=== PATIENT | female | born 1960 | race Caucasian/White ===

== ENCOUNTER 2016-09-09 08:32 | Emergency (ER) | payer BC ==
[~2016-09-09] VITALS: Ht 170.2 cm; Wt 123.0 kg
[~2016-09-09 08:32] MED LIST: BUPR75TA PO; CANA300T PO; GLIM2TAB PO; HYDR-4107 PO; LOSA25TA PO; METO100T PO; NIFE30TA61 PO; OMEP20TA PO; RANI150C PO; ZETI10TA5 PO; ZOLO100T PO
[2016-09-09 08:42] VITALS: BP 155/79; PULSE 97; RESP 18; TEMP 97.8; O2SAT 97
--- NOTE | 2016-09-09 09:07 | PD ---
HPI Chief Complaint: Chest Pain Time Seen by Provider: 08:41 Travel History International Travel<30 days: No Contact w/Intl Traveler<30days: No Traveled to known affect area: No History of Present Illness HPI The patient is a 55-year-old female who presents to the emergency department for palpitations and shortness of breath. The patient states her symptoms started yesterday, she notes palpitations with difficulty breathing during her palpitations. She also complains of substernal burning pain with a foul taste in her mouth, which she contributes to assess her reflex. The patient does have a history of palpitations in the past with previous workup including outpatient Holter monitor. The patient is currently on metoprolol and Procardia. The patient cannot recall the name of the chief nurse anesthetist she saw several years ago for her palpitations. The patient denies any recent travel, surgeries, hospitalizations, or history of pulmonary embolism/DVT. The patient does have a history of hypertension and diabetes, denies any known history of CAD. Symptoms are moderate, there are no known alleviating or exacerbating factors. PFSH Past Medical History Anxiety: Yes Depression: Yes Heart Rhythm Problems: Yes (PALPITATIONS-IRREGULAR HEART BEAT) Cancer: Yes (RENAL CELL CARCINOMA) Chemotherapy: No Diabetes: Yes Patient Takes Glucophage: No Diminished Hearing: No GERD: Yes Genitourinary: Yes ("HORSE SHOE" KIDNEY) Hypertension: Yes Musculoskeletal: Yes (DEGENERATIVE DISC DISEASE, SCIATICA) Neurologic: No Reproductive: No Respiratory: Yes (11/30 ATELECTASIS FOLLOWING CHOLECYSTECTOMY) Immunizations Current: No Radiation Therapy: No PNEUMOCCOCAL Vaccine (Year): 2 ?: Not Menopausal: Yes Past Surgical History Abdominal Surgery: Yes (SPLENECTOMY R/T INJURY) Cholecystectomy: Yes (11/30) Genitourinary Surgery: Yes (LEFT KIDNEY PARTIAL REMOVAL R/T CANCER -2009) Pacemaker: No Tonsillectomy: Yes (+ adenoids) Other Surgery: Yes Social History Alcohol Use: Yes (SELDOM; RARE -BEER) Tobacco Use: No (QUIT 20+ YRS AGO- SMOKED CIGS) Substance Use: No Allergies-Medications (Allergen,Severity, Reaction): Coded Allergies: Cipro (Verified Allergy, Mild, Itching, 09/09/16) Reported Meds & Prescriptions Reported Meds & Active Scripts Active Reported Zoloft (Sertraline HCl) 100 Mg Tab 150 Mg PO DAILY Ranitidine (Ranitidine HCl) 150 Mg Cap 150 Mg PO DAILY Omeprazole 20 Mg Tab 20 Mg PO DAILY Nifedipine ER 24 HR (Nifedipine) 30 Mg Tab 30 Mg PO DAILY Hydrocodone-Acetaminophen 5-300 Mg Tab 1 Tab PO Q4H PRN Metoprolol Tartrate 100 Mg Tab 100 Mg PO DAILY Losartan (Losartan Potassium) 25 Mg Tab 25 Mg PO DAILY Glimepiride 2 Mg Tab 2 Mg PO BID Take with breakfast or first main meal Invokana (Canagliflozin) 300 Mg Tab 300 Mg PO DAILY Take before 1st meal of day. Bupropion HCl 75 Mg Tab 150 Mg PO DAILY Review of Systems Except as stated in HPI: all other systems reviewed are Neg General / Constitutional: No: Fever HENT: No: Lightheadedness Cardiovascular: Positive: Palpitations, No: Chest Pain or Discomfort, Diaphoresis Respiratory: Positive: Shortness of Breath Gastrointestinal: No: Nausea Musculoskeletal: No: Edema Neurologic: No: Dizziness Physical Exam Narrative GENERAL: Awake, alert, pleasant 35-year-old female who appears her stated age and is in no acute respiratory distress. The patient doesn't appear mildly anxious. SKIN: Warm and dry. HEAD: Atraumatic. Normocephalic. EYES: No injection or drainage. ENT: No nasal bleeding or discharge. Mucous membranes pink and moist. NECK: Trachea midline. No JVD. CARDIOVASCULAR: Regular rate and rhythm. No murmur appreciated. Heart rate in the 90s. RESPIRATORY: No accessory muscle use. Clear to auscultation. Breath sounds equal bilaterally. GASTROINTESTINAL: Abdomen soft, non-tender, nondistended. MUSCULOSKELETAL: No obvious deformities. No clubbing. No cyanosis. No edema. NEUROLOGICAL: Awake and alert. No obvious cranial nerve deficits. Motor grossly within normal limits. Normal speech. PSYCHIATRIC: Appropriate mood and affect; insight and judgment normal. Data Data Last Documented VS Vital Signs Date Time Temp Pulse Resp B/P Pulse Ox O2 Delivery O2 Flow Rate FiO2 09/09/16 11:01 82 18 131/77 95 Room Air 09/09/16 08:42 97.8 Orders Complete Blood Count With Diff (09/09/16 09:01) Comprehensive Metabolic Panel (09/09/16 09:01) B-Type Natriuretic Peptide (09/09/16 09:01) D-Dimer (09/09/16 09:01) Act Partial Throm Time (Ptt) (09/09/16 09:01) Prothrombin Time / Inr (Pt) (09/09/16 09:01) Magnesium (Mg) (09/09/16 09:01) Ckmb (Isoenzyme) Profile (09/09/16 09:01) Troponin I (09/09/16 09:01) Iv Access Insert/Monitor (09/09/16 09:01) Ecg Monitoring (09/09/16 09:01) Oximetry (09/09/16 09:01) Oxygen Administration (09/09/16 09:01) Chest, Single Ap (09/09/16 09:01) Sodium Chloride 0.9% Flush (Ns Flush) (09/09/16 09:15) Aspirin Chew (Aspirin Chew) (09/09/16 09:15) Ct Pulmonary Angiogram (09/09/16 ) Iohexol 350 Inj (Omnipaque 350 Inj) (09/09/16 10:52) Labs Laboratory Tests Test 09/09/16 09/09/16 09/09/16 09:12 09:38 09:57 Sodium Level 142 MEQ/L Potassium Level 3.9 MEQ/L Chloride Level 108 MEQ/L Carbon Dioxide Level 23.6 MEQ/L Anion Gap 10 MEQ/L Blood Urea Nitrogen 7 MG/DL Creatinine 0.66 MG/DL Estimat Glomerular Filtration 93 ML/MIN Rate Random Glucose 144 MG/DL Calcium Level 8.2 MG/DL Magnesium Level 2.3 MG/DL Total Bilirubin 0.5 MG/DL Aspartate Amino Transf 22 U/L (AST/SGOT) Alanine Aminotransferase 25 U/L (ALT/SGPT) Alkaline Phosphatase 140 U/L Total Creatine Kinase 45 U/L Troponin I LESS THAN 0.02 NG/ML B-Type Natriuretic Peptide 15 PG/ML Total Protein 7.6 GM/DL Albumin 3.2 GM/DL White Blood Count 13.6 TH/MM3 Red Blood Count 4.68 MIL/MM3 Hemoglobin 13.9 GM/DL Hematocrit 43.2 % Mean Corpuscular Volume 92.2 FL Mean Corpuscular Hemoglobin 29.8 PG Mean Corpuscular Hemoglobin 32.3 % Concent Red Cell Distribution Width 14.1 % Platelet Count 565 TH/MM3 Mean Platelet Volume 7.6 FL Neutrophils (%) (Auto) 70.6 % Lymphocytes (%) (Auto) 18.4 % Monocytes (%) (Auto) 4.6 % Eosinophils (%) (Auto) 4.4 % Basophils (%) (Auto) 2.0 % Neutrophils # (Auto) 9.6 TH/MM3 Lymphocytes # (Auto) 2.5 TH/MM3 Monocytes # (Auto) 0.6 TH/MM3 Eosinophils # (Auto) 0.6 TH/MM3 Basophils # (Auto) 0.3 TH/MM3 CBC Comment DIFF FINAL Differential Comment Prothrombin Time 10.1 SEC Prothromb Time International 0.9 RATIO Ratio Activated Partial 26.7 SEC Thromboplast Time D-Dimer Quantitative (PE/DVT) 0.65 MG/L FEU [facility] Medical Decision Making Medical Screen Exam Complete: Yes Emergency Medical Condition: Yes Medical Record Reviewed: Yes Interpretation(s) EKG reveals sinus tachycardia with a rate of 101. Incomplete right bundle branch block. Q wave noted in lead 3 and aVF. No significant changes when compared to EKG performed January 16, 2013. Last Impressions Chest X-Ray 09/09/16 0901 Signed Impressions: Service Date/Time: August 09:15 - CONCLUSION: 1. No acute cardiopulmonary findings identified. Nate Ayon MD CT pulmonary angiogram is negative for pulmonary embolism. Minimal scattered parenchymal scarring in the lungs. Laboratory Tests Test 09/09/16 09/09/16 09/09/16 09:12 09:38 09:57 Sodium Level 142 MEQ/L Potassium Level 3.9 MEQ/L Chloride Level 108 MEQ/L Carbon Dioxide Level 23.6 MEQ/L Anion Gap 10 MEQ/L Blood Urea Nitrogen 7 MG/DL Creatinine 0.66 MG/DL Estimat Glomerular Filtration 93 ML/MIN Rate Random Glucose 144 MG/DL Calcium Level 8.2 MG/DL Magnesium Level 2.3 MG/DL Total Bilirubin 0.5 MG/DL Aspartate Amino Transf 22 U/L (AST/SGOT) Alanine Aminotransferase 25 U/L (ALT/SGPT) Alkaline Phosphatase 140 U/L Total Creatine Kinase 45 U/L Troponin I LESS THAN 0.02 NG/ML B-Type Natriuretic Peptide 15 PG/ML Total Protein 7.6 GM/DL Albumin 3.2 GM/DL White Blood Count 13.6 TH/MM3 Red Blood Count 4.68 MIL/MM3 Hemoglobin 13.9 GM/DL Hematocrit 43.2 % Mean Corpuscular Volume 92.2 FL Mean Corpuscular Hemoglobin 29.8 PG Mean Corpuscular Hemoglobin 32.3 % Concent Red Cell Distribution Width 14.1 % Platelet Count 565 TH/MM3 Mean Platelet Volume 7.6 FL Neutrophils (%) (Auto) 70.6 % Lymphocytes (%) (Auto) 18.4 % Monocytes (%) (Auto) 4.6 % Eosinophils (%) (Auto) 4.4 % Basophils (%) (Auto) 2.0 % Neutrophils # (Auto) 9.6 TH/MM3 Lymphocytes # (Auto) 2.5 TH/MM3 Monocytes # (Auto) 0.6 TH/MM3 Eosinophils # (Auto) 0.6 TH/MM3 Basophils # (Auto) 0.3 TH/MM3 CBC Comment DIFF FINAL Differential Comment Prothrombin Time 10.1 SEC Prothromb Time International 0.9 RATIO Ratio Activated Partial 26.7 SEC Thromboplast Time D-Dimer Quantitative (PE/DVT) 0.65 MG/L FEU Differential Diagnosis Differential diagnosis includes palpitations, arrhythmia, PAC, PVC, pulmonary embolism, cardiomyopathy, acute coronary syndrome Narrative Course IV was established, labs are drawn and sent, and the patient was placed on cardiac telemetry monitoring and continuous pulse oximetry monitoring. EKG was ordered and interpreted. Chest x-ray was ordered. The patient was administered aspirin 162 mg orally. The patient did take an extra dose of her metoprolol 100 mg extended release, as she was advised in the past for her palpitations. She was slightly tachycardic with no other risk factors, therefore, d-dimer was sent to lab. Patient does have a right bundle-branch block, initially had tachycardia, unable to rule out secondary to PERC criteria. Therefore, d-dimer was evaluated, was elevated, therefore, CT pulmonary injury gram was ordered. CT pulmonary injury gram is negative, patient symptoms have resolved, she to be a to taking more metoprolol this morning. Patient is stable for outpatient follow-up. Diagnosis Primary Impression: Palpitations Additional Impression: Dyspnea Qualified Code: R06.00 - Dyspnea, unspecified type Patient Instructions: General Instructions Additional Instructions: Please provide the patient a copy of her x-ray results, CT results, and lab results at discharge. Follow-up with your primary physician. Return if symptoms worsen or progress. Continue your current home medications as previously directed. Disposition: 01 DISCHARGE HOME Condition: Stable Yonathan Watts MD Sep 09, 2016 09:07
[2016-09-09 09:12] VITALS: O2SAT 97
[2016-09-09] MEDS ORDERED: ASPIRIN 81 MG CHEW TAB CHEW ONE (09:15)
[2016-09-09] MEDS ORDERED: SODIUM CHLORIDE 0.9% FLUSH 5 ML FLUSH IVF PRN (09:15)
--- NOTE | 2016-09-09 09:36 | RADHPO ---
EXAM DATE/TIME: 09/09/2016 09:15 [facility] COMPARISON: FLUOROSCOPY FOR INTERVENTIONAL PAIN, SPINAL UP TO 1 HR, December 20, 2014, 0:00. INDICATIONS : Heart palpatations & short of breath. MEDICAL HISTORY : Hypertension. Gastroesophageal reflux disease. . Irregular heart beat.Diabetes. Renal cell carci noma. Degenerative disc disease. SURGICAL HISTORY : Tonsillectomy. Cholecystectomy. Splenectomy. ENCOUNTER: Initial ACUITY: 2 days PAIN SCORE: 5/10 LOCATION: chest FINDINGS: A single view of the chest demonstrates the lungs to be symmetrically aerated without evidence of mas s, infiltrate or effusion. The cardiomediastinal contours are unremarkable. Osseous structures are intact. CONCLUSION: 1. No acute cardiopulmonary findings identified. Nate Ayon MD on September 09, 2016 at 9:34 Board Certified Radiologist. This report was verified electronically.
[2016-09-09 09:42] LABS: AUTOMATED NEUTROPHIL # 9.6 TH/MM3 (1.8-7.7); BASOPHIL # 0.3 TH/MM3 (0-0.2); EOSINOPHIL # 0.6 TH/MM3 (0-0.4); EOSINOPHIL % 4.4 % (0.0-4.0); HEMATOCRIT 43.2 % (35.0-46.0); HEMO FLAGS DIFF FINAL; LYMPH % 18.4 % (9.0-44.0); LYMPHOCYTE # 2.5 TH/MM3 (1.0-4.8); MEAN CELL VOLUME 92.2 FL (80.0-100.0); MEAN CORPUSCULAR HEMOGLOBIN 29.8 PG (27.0-34.0); MEAN CORPUSCULAR HGB CONC 32.3 % (32.0-36.0); MONO % 4.6 % (0.0-8.0); NEUT % 70.6 % (16.0-70.0); PLATELET COUNT 565 TH/MM3 (150-450); RED BLOOD COUNT 4.68 MIL/MM3 (4.00-5.30); RED CELL DISTRIBUTION WIDTH 14.1 % (11.6-17.2); WHITE BLOOD COUNT 13.6 TH/MM3 (4.0-11.0)
[2016-09-09 09:54] LABS: CHLORIDE 108 MEQ/L (98-107); POTASSIUM 3.9 MEQ/L (3.5-5.1); SODIUM (NA) 142 MEQ/L (136-145)
[2016-09-09 09:55] LABS: ANION GAP 10 MEQ/L (5-15); BICARBONATE 23.6 MEQ/L (21.0-32.0); BLOOD UREA NITROGEN 7 MG/DL (7-18); MAGNESIUM 2.3 MG/DL (1.5-2.5)
[2016-09-09 09:58] LABS: ALT (GPT) 25 U/L (10-53)
[2016-09-09 09:59] LABS: AST (GOT) 22 U/L (15-37); GLOMERULAR FILTRATION RATE 93 ML/MIN (>89)
[2016-09-09 10:00] LABS: TOTAL BILIRUBIN ADULT 0.5 MG/DL (0.2-1.0)
[2016-09-09 10:01] LABS: ALKALINE PHOSPHATASE 140 U/L (45-117)
[2016-09-09 10:05] LABS: CREATINE KINASE 45 U/L (26-192)
[2016-09-09 10:15] LABS: APTT (PATIENT) 26.7 SEC (24.3-30.1); INTERNATIONAL NORMALIZED RATIO 0.9 RATIO; PROTHROMBIN TIME - PATIENT 10.1 SEC (9.8-11.6)
[2016-09-09] MEDS ORDERED: IOHEXOL 350 MG/ML 10 ML VIAL (for RAD DIAG) IV ONE (10:52)
[2016-09-09 11:01] VITALS: BP 131/77; PULSE 82; RESP 18; O2SAT 95
--- NOTE | 2016-09-09 11:04 | RADHPO ---
EXAM DATE/TIME: 09/09/2016 10:40 [facility] COMPARISON: CTA CHEST W 3D RECON, September 04, 2009, 21:24. INDICATIONS : Short of breath. IV CONTRAST: 80 cc Omnipaque 350 (iohexol) IV RADIATION DOSE: 21.66 CTDIvol (mGy) MEDICAL HISTORY : Renal cell carcinoma. Diabetes mellitus type 2. Gastroesophageal reflux disease.Hypertension. SURGICAL HISTORY : Splenectomy. Partial nephrectomy. ENCOUNTER: Initial ACUITY: 1 day PAIN SCALE: 2/10 LOCATION: Bilateral chest TECHNIQUE: Volumetric scanning of the chest was performed using a pulmonary embolism protocol MIP images were re constructed. Using automated exposure control and adjustment of the mA and/or kV according to patien t size, radiation dose was kept as low as reasonably achievable to obtain optimal diagnostic quality images. FINDINGS: Compare 2009. No filling defects identified in the pulmonary arteries to suggest pulmonary embolic di sease. There is minimal linear scarring or subsegmental atelectasis in the lungs. No pleural or peric ardial effusion. No hilar or mediastinal adenopathy. There is a mildly prominent 1.9 cm left axillary lymph node not significantly changed since 2009. CONCLUSION: 1. Negative for pulmonary embolism. Minimal scattered parenchymal scarring in the lungs. Lawson Rowley MD on September 09, 2016 at 10:57 Board Certified Radiologist. This report was verified electronically.
--- NOTE | 2016-09-10 13:31 | EKG ---
Date Performed: 09/09/2016 Time Performed: 08:38:02 PTAGE: 55 years EKG: Sinus tachycardia Left axis deviation Incomplete RBBB Inferior infarct - age undetermined R ight ventricular hypertrophy Septal ST-T changes may be due to hypertrophy and/or ischemia Q waves in V2 are new since prior tracing. Possible anteroseptal infarct or lead placement Clinical correlation recommended. Abnormal ECG PREVIOUS TRACING : 01/16/2013 09.14 DOCTOR: Joey Isaacs Interpretating Date/Time 09/10/2016 13:30:43
== END 2016-09-09 11:27 | disposition home or self-care (01) ==
LOC: PHED 08:32
DX: R00.2 Palpitations (principal); R06.00 Dyspnea, unspecified; E11.9 Type 2 diabetes mellitus without complications; K21.9 Gastro-esophageal reflux disease without esophagitis; I10 Essential (primary) hypertension; R00.0 Tachycardia, unspecified; I45.10 Unspecified right bundle-branch block; Z79.4 Long term (current) use of insulin
CPT/HCPCS: 71010; 71275; 80053; 82550; 83735; 83880; 84484; 85025; 85379; 85610; 85730; 93005; 99285; Q9967

== ENCOUNTER 2016-09-30 05:43 | Emergency (ER) | payer OTHER, BC ==
[~2016-09-30] VITALS: Ht 170.2 cm; Wt 120.0 kg
[~2016-09-30 05:43] MED LIST changes: -ZETI10TA5 PO
[2016-09-30 05:50] VITALS: BP 141/73; PULSE 70; RESP 18; TEMP 98.4; O2SAT 94
--- NOTE | 2016-09-30 06:12 | PD ---
HPI Chief Complaint: Fall Time Seen by Provider: 06:09 Travel History International Travel<30 days: No Contact w/Intl Traveler<30days: No Traveled to known affect area: No History of Present Illness HPI The patient is a 55-year-old female that tripped and fell at 1:00 yesterday. She initially complained of bilateral knee pain but the left knee is much more painful and she states she cannot put weight on it. She fell directly on the patella on both knees. The pain in the right knee is resolving. 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 PFSH Past Medical History Anxiety: Yes Depression: Yes Heart Rhythm Problems: Yes (PALPITATIONS-IRREGULAR HEART BEAT) Cancer: Yes (RENAL CELL CARCINOMA) Chemotherapy: No Diabetes: Yes Diminished Hearing: No GERD: Yes Genitourinary: Yes ("HORSE SHOE" KIDNEY) Hypertension: Yes Musculoskeletal: Yes (DEGENERATIVE DISC DISEASE, SCIATICA) Neurologic: No Reproductive: No Respiratory: Yes (11/30 ATELECTASIS FOLLOWING CHOLECYSTECTOMY) Immunizations Current: No Radiation Therapy: No PNEUMOCCOCAL Vaccine (Year): 2 Menopausal: Yes Past Surgical History Abdominal Surgery: Yes (SPLENECTOMY R/T INJURY) Cholecystectomy: Yes (11/30) Genitourinary Surgery: Yes (LEFT KIDNEY PARTIAL REMOVAL R/T CANCER -2009) Pacemaker: No Tonsillectomy: Yes (+ adenoids) Other Surgery: Yes Social History Alcohol Use: Yes (SELDOM; RARE -BEER) Tobacco Use: No (QUIT 20+ YRS AGO- SMOKED CIGS) Substance Use: No Allergies-Medications (Allergen,Severity, Reaction): Coded Allergies: Cipro (Verified Allergy, Mild, Itching, 09/30/16) Reported Meds & Prescriptions Reported Meds & Active Scripts Active Reported Zetia (Ezetimibe) 10 Mg Tab 10 Mg PO DAILY Metoprolol Succinate ER 24 HR (Metoprolol Succinate) 100 Mg Tab 100 Mg PO DAILY Hydrocodone-Acetaminophen 10-325 mg Tab 1 Tab PO Q6H PRN Zoloft (Sertraline HCl) 100 Mg Tab 50 Mg PO DAILY Ranitidine (Ranitidine HCl) 150 Mg Cap 150 Mg PO DAILY Omeprazole 20 Mg Tab 20 Mg PO DAILY Nifedipine ER 24 HR (Nifedipine) 30 Mg Tab 30 Mg PO DAILY Losartan (Losartan Potassium) 25 Mg Tab 25 Mg PO DAILY Glimepiride 2 Mg Tab 2 Mg PO BID Take with breakfast or first main meal Invokana (Canagliflozin) 300 Mg Tab 300 Mg PO DAILY Take before 1st meal of day. Bupropion HCl 75 Mg Tab 150 Mg PO DAILY Review of Systems Except as stated in HPI: all other systems reviewed are Neg Physical Exam Narrative GENERAL: Well-nourished, alert and oriented, obese patient in moderate apparent distress with her left knee pain. The vital signs are normal. SKIN: Warm and dry. HEAD: Normocephalic. EYES: No scleral icterus. No injection or drainage. NECK: Supple, trachea midline. No JVD or lymphadenopathy. CARDIOVASCULAR: Regular rate and rhythm without murmurs, gallops, or rubs. RESPIRATORY: Breath sounds equal bilaterally. No accessory muscle use. GASTROINTESTINAL: Abdomen soft, non-tender, nondistended. MUSCULOSKELETAL: No cyanosis, or edema. No deformities noted of the left knee but there is tenderness over the patella as well as posteriorly over the left knee. Collaterals, drawer, Pricila show intact ligaments that there is pain with all of this testing. Good capillary refill and pinprick is present distally on the left foot. BACK: Nontender without obvious deformity. No CVA tenderness. Data Data Last Documented VS Vital Signs Date Time Temp Pulse Resp B/P Pulse Ox O2 Delivery O2 Flow Rate FiO2 09/30/16 05:50 98.4 70 18 141/73 94 Orders Knee, Complete (4vws) (09/30/16 06:12) [facility] Medical Decision Making Medical Screen Exam Complete: Yes Emergency Medical Condition: Yes Medical Record Reviewed: Yes Interpretation(s) The patient has a suprapatellar effusion on the right knee, no fracture noted. Differential Diagnosis Fracture patella, fracture knee, knee effusion Narrative Course The patient has a contusion of the left knee with a suprapatellar effusion. Plan: The patient will be given Percocet 5, rest, elevation and ice packs. She is given off work until Tuesday. The patient cannot tolerate crutches, she will need to get a walker. Additional Instructions: As we discussed, your idea of a walker is moderate superior than crutches. Do not drink alcohol or drive on the Percocet 5. Elevate the knee above your heart as best you can. Med/Other Pt SpecificInfo: Prescription(s) given Scripts Oxycodone-Acetaminophen (Percocet)5-325 mg Tab1 Tab PO Q4H PRN (PAIN) #30 TAB Ref 0 Prov:Reynold Post MD 09/30/16 Disposition: 01 DISCHARGE HOME Condition: Stable Reynold Post MD Sep 30, 2016 06:12
[2016-09-30] MEDS ORDERED: HYDR-3583 PO (06:32)
[2016-09-30] MEDS ORDERED: METO100T9 PO (06:35)
[2016-09-30] MEDS ORDERED: ZETI10TA5 PO (06:37)
--- NOTE | 2016-09-30 06:51 | RADHPO ---
EXAM DATE/TIME: 09/30/2016 06:22 [facility] COMPARISON: No previous studies available for comparison. INDICATIONS : Left knee pain after fall from standing height 24 hours ago MEDICAL HISTORY : None. SURGICAL HISTORY : None. ENCOUNTER: Initial ACUITY: 1 day PAIN SCORE: 5/10 LOCATION: Left anterior knee FINDINGS: Four view examination of the left knee demonstrates no evidence of fracture or dislocation. Bony min eralization is normal. The articular surfaces are intact. Small suprapatellar effusion. CONCLUSION: Small suprapatellar effusion. No fracture. Juanito Jeffers MD on September 30, 2016 at 6:49 Board Certified Radiologist. This report was verified electronically.
[2016-09-30] MEDS ORDERED: PERC5TAB12 PO (07:17)
[2016-09-30] MEDS ORDERED: PHYTONADIONE INJ 1 MG/0.5 ML AMP SQ ONE (07:30)
[2016-09-30] MEDS ORDERED: oxyCODONE/ACETAMINOPHEN 7.5 MG/325 MG TAB PO ONE (07:30)
[2016-09-30] MEDS ORDERED: IBUP-232 PO (07:40)
[2016-09-30] MEDS ORDERED: IBUPROFEN 600 MG TAB PO ONE (07:45)
[2016-09-30 08:46] VITALS: RESP 16
--- NOTE | 2016-09-30 08:53 | PD ---
Data Data Last Documented VS Vital Signs Date Time Temp Pulse Resp B/P Pulse Ox O2 Delivery O2 Flow Rate FiO2 09/30/16 08:46 16 09/30/16 05:50 98.4 70 141/73 94 Orders Knee, Complete (4vws) (09/30/16 06:12) Oxycodone-Acetamin 7.5-325 Mg (Percocet (09/30/16 07:30) Ibuprofen (Motrin) (09/30/16 07:45) MDM Supervised Visit with MADONNA: No Narrative Course Patient seen and examined briefly by me. Patient seen at Dr. Post overnight. Patient had a slip and fall with bilateral knee pain. Patient had an x-ray of her left knee which was more painful and had a knee effusion without acute bony injury. She is being discharged with instructions for a walker. After discharge by Dr. Martin as found the patient had injured herself by slip and fall at work. I was asked to fill out workman's injury paperwork. I have done so. The patient is being escorted to her current wheelchair. She appears well in no apparent distress. 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 She is cleared to return to work. Diagnosis Primary Impression: Knee effusion, left Patient Instructions: General Instructions, Narcotic given in the ED, Swollen Knee Joint (ED), Knee Pain (ED) Departure Forms: Tests/Procedures Additional Instruction: As we discussed, your idea of a walker is moderate superior than crutches. Do not drink alcohol or drive on the Percocet 5. Elevate the knee above your heart as best you can. Scripts Ibuprofen 600 Mg [id number] Mg PO TID #40 TAB Ref 0 Prov:Reynold Post MD 09/30/16 Oxycodone-Acetaminophen (Percocet)5-325 mg Tab1 Tab PO Q4H PRN (PAIN) #30 TAB Ref 0 Prov:Reynold Post MD 09/30/16 Disposition: 01 DISCHARGE HOME Condition: Stable Bradley Tubbs MD Sep 30, 2016 08:53
== END 2016-09-30 08:56 | disposition home or self-care (01) ==
LOC: PHED 05:43
DX: M25.462 Effusion, left knee (principal); S80.02XA Contusion of left knee, initial encounter; M25.561 Pain in right knee; I10 Essential (primary) hypertension; E11.9 Type 2 diabetes mellitus without complications; W01.0XXA Fall on same level from slipping, tripping and stumbling without subsequent striking against object, initial encounter; Y99.0 Civilian activity done for income or pay; Z79.84 Long term (current) use of oral hypoglycemic drugs; Z86.59 Personal history of other mental and behavioral disorders; Z86.79 Personal history of other diseases of the circulatory system; Z85.528 Personal history of other malignant neoplasm of kidney; Z87.19 Personal history of other diseases of the digestive system; Z87.448 Personal history of other diseases of urinary system; Z87.39 Personal history of other diseases of the musculoskeletal system and connective tissue; Z87.891 Personal history of nicotine dependence
CPT/HCPCS: 73564; 99283

== ENCOUNTER → 2017-10-18 | Day surgery (SDC) | payer BC ==
[~2017-10-18] MED LIST changes: +BUPIVACAINE HCL PF 0.75% 30 ML VIAL ONE; +EZET10 PO; +HYDR-3583 PO; -HYDR-4107 PO; +IBUP-232 PO; -METO100T PO; +METO1TAB43 PO; -OMEP20TA PO; +OMEP20TA93 PO; +PERC5TAB12 PO; +PROPOFOL 200 MG/20 ML AMP IV ONE; +TRIAMCINOLONE ACETONIDE 40 MG/ML VIAL I-ARTICULR ONE
--- NOTE | 2017-10-18 10:24 | M6 ---
cc: Swapna Saldana MD DATE: 10/18/2017 DATE OF : 1960 PROCEDURE: Fluoroscopically-guided injection, bilateral lumbar facet joints (bilateral L3-L4, L4-L5 and L5-S1 facet joints). PROCEDURE NOTE: History and physical was completed and signed. Consent was signed. Procedure site was marked. Medications were listed and reconciled. Pain score was recorded. Allergies were noted. Time out was taken. Fluoroscopy time was recorded where applicable. Sedation was administered or directed by Dr. Saldana. The patient was given oxygen. The patient was monitored by a registered nurse. Total procedure time was greater than 15 minutes. IV was started. Blood pressure cuff, pulse oximeter and EKG were applied. The patient was placed in the prone position on a Sung table, sedated with small amounts of Propofol titrated to effect. Vital signs were monitored and remained stable throughout the procedure. The lumbar area was prepped with alcohol and 10% Betadine solution and draped with sterile drapes. Fluoroscopy was used and a Miguel dog view to clearly visualize the bilateral lumbar facet joints at L3-L4, L4-L5, and L5-S1. Separate sterile 5 inch, 22-gauge spinal needles were advanced into these joints under fluoroscopic guidance. There was negative aspiration for blood or any other type of fluid and at each location, the patient was given 1 mL of Marcaine 0.75%, which contained 10 mg of Kenalog. Following this, the patient was taken to the recovery room with stable vital signs and neurologically intact. Swapna Saldana MD [facility] , 10:00 AM , 10:24 AM
== END | disposition home or self-care (01) ==
LOC: PHSDC 07:48
PROVIDERS: ATTEND Pain Medicine Interventional Pain Medicine
DX: M54.5 Low back pain (principal)
CPT/HCPCS: 64493; 64494; 64495; 99152; J3301

== ENCOUNTER 2018-05-19 17:18 | Inpatient (IN) ==
[2018-05-19 18:52] LABS: Baso # (Auto) 0.2 th/mm3 (0.0-0.2); Eos # (Auto) 0.3 th/mm3 (0.0-0.4); Eos % (Auto) 1.8 % (0.0-4.0); Hematocrit 45.9 % (35.0-46.0); Hemoglobin 15.4 gm/dL (11.6-15.3); Lymph # (Auto) 4.2 th/mm3 (1.0-4.8); Lymph % (Auto) 22.7 % (9.0-44.0); Mean Corpuscular HGB Conc 33.5 % (32.0-36.0); Mean Corpuscular Hemoglobin 31.2 pg (27.0-34.0); Mean Platelet Volume 8.1 fL (7.0-11.0); Mono # (Auto) 1.3 th/mm3 (0.0-0.9); Mono % (Auto) 7.2 % (0.0-8.0); Neut # (Auto) 12.6 th/mm3 (1.8-7.7); Neut % (Auto) 67.3 % (16.0-70.0); Platelet Count 542 th/mm3 (150-450); Red Blood Count 4.93 mil/mm3 (4.00-5.30); Red Cell Distribution Width 14.3 % (11.6-17.2); White Blood Count 18.7 th/mm3 (4.0-11.0)
[2018-05-19 19:05] LABS: Activated Partial Thrombo Time 24.8 sec (24.3-30.1)
[2018-05-19 19:24] LABS: Alanine Aminotransferase 30 U/L (10-53); Albumin 3.3 g/dL (3.4-5.0); Alkaline Phosphatase 148 U/L (45-117); Anion Gap 11 meq/L (5-15); Aspartate Aminotransferase 34 U/L (15-37); Blood Urea Nitrogen 12 mg/dL (7-18); Calcium 8.8 mg/dL (8.5-10.1); Carbon Dioxide 23.4 meq/L (21.0-32.0); Chloride 106 meq/L (98-107); Glomerular Filtration Rate 58 mL/min (>89); Glucose,Random 120 mg/dL (74-106); Sodium 140 meq/L (136-145); Total Protein 8.2 g/dL (6.4-8.2)
[2018-05-19 19:25] LABS: Potassium 3.7 meq/L (3.5-5.1)
--- NOTE | 2018-05-19 19:37 | ED ---
HPI General Chief complaint: Respiratory Symptoms Stated complaint: CT scan showed pulmonary embolisms Time Seen by Provider: 05/19/18 17:52 History of Present Illness HPI narrative: 57-year-old female with a history of renal cell carcinoma, presents here at the request of her oncologist for admission and evaluation for bilateral pulmonary embolus. Patient states that she gets routine CT scans to follow-up on her renal cell carcinoma. She states she is been cancer free since her surgery. Patient reports she followed up with Dr. Rolon who ordered an outpatient CT scan of her chest and abdomen pelvis. She states that he called her and told her to come to the hospital because she had bilateral pulmonary emboli. Patient reports that she is been short of breath and thought it was related to a recent URI. Patient also reports that she has no previous history of blood clots. She denies any long car rides or plane rides. She denies being on estrogen. She denies any tobacco abuse. Denies any trauma to her previous legs or leg pain or calf swelling. Related Data Home Medications Medication Instructions Recorded Confirmed bupropion HCl 150 mg PO QAM 02/28/18 05/19/18 canagliflozin [Invokana] 300 mg PO QAM 02/28/18 05/19/18 ezetimibe 10 mg PO DAILY 02/28/18 05/19/18 glimepiride 2 mg PO BID 02/28/18 05/19/18 losartan 25 mg PO DAILY 02/28/18 05/19/18 metoprolol succinate 100 mg PO DAILY 02/28/18 05/19/18 nifedipine 30 mg PO DAILY 02/28/18 05/19/18 omeprazole 20 mg PO DAILY 02/28/18 05/19/18 sertraline 50 mg PO DAILY 02/28/18 05/19/18 calcipotriene-betamethasone 1 applic TOPICAL DAILY 05/19/18 05/19/18 Allergies Allergy/AdvReac Type Severity Reaction Status Date / Time ciprofloxacin Allergy Mild Itching Verified 05/19/18 17:55 Review of Systems ROS: all other systems reviewed are negative Constitutional Reports system reviewed and no additional complaints, except as docu Eyes Reports system reviewed and no additional complaints, except as docu ENT Reports system reviewed and no additional complaints, except as docu Cardiovascular Denies chest pain and Reports dyspnea Respiratory Denies chest congestion, Denies cough and Reports dyspnea Gastrointestinal Denies abdominal pain, Denies nausea and Denies vomiting Genitourinary Reports system reviewed and no additional complaints, except as docu Musculoskeletal Denies system reviewed and no additional complaints, except as [facility] Neurologic Reports system reviewed and no additional complaints, except as [facility] Medical History Medical History Diabetes mellitus (Acute) HTN (hypertension) (Acute) History of kidney cancer (Acute) Obesity (Acute) Bulging of cervical intervertebral disc (Acute) Horseshoe kidney (Acute) Nerve pain (Acute) Surgical History Surgical History History of cholecystectomy (Acute) History of splenectomy (Acute) Social History Social History Substance History: Past History Smoking Status: Former smoker How Often Do You Have a Drink Containing Alcohol: Monthly or less Recent Travel in [facility] within the Last 8 Weeks: No Recent Out of Country Travel within the Last 8 Weeks: No Immunization History Tetanus Immunization: >5 Years Exam Narrative Exam Narrative: GENERAL: Well-developed well-nourished female in no acute respiratory distress. SKIN: Focused skin assessment warm/dry. HEAD: Atraumatic. Normocephalic. EYES: No scleral icterus. No injection or drainage. ENT: No nasal bleeding or discharge. Mucous membranes pink and moist. NECK: Trachea midline. No JVD. Supple. CARDIOVASCULAR: Sinus tach with a rate of 104. No murmur appreciated. RESPIRATORY: No accessory muscle use. Clear to auscultation. Breath sounds equal bilaterally. GASTROINTESTINAL: Abdomen soft, non-tender, nondistended. Hepatic and splenic margins not palpable. MUSCULOSKELETAL: No obvious deformities. No clubbing. No cyanosis. No edema. NEUROLOGICAL: Awake and alert. No obvious cranial nerve deficits. Motor grossly within normal limits. Normal speech. Course Initial Documented Vital Signs Temperature 99.0 F 05/19/18 17:35 Pulse Rate 102 H 05/19/18 17:35 Respiratory Rate 18 05/19/18 17:35 Blood Pressure 165/89 H 05/19/18 17:35 Pulse Oximetry 93 L 05/19/18 17:35 Last Documented Vital Signs Temperature 99.0 F 05/19/18 17:35 Pulse Rate 97 H 05/19/18 18:00 Respiratory Rate 17 05/19/18 19:25 Blood Pressure 145/59 H 05/19/18 19:25 Pulse Oximetry 96 05/19/18 19:25 Medical Decision Making MDM Narrative Medical decision making narrative: 57-year-old female history of renal cell carcinoma, status post resection, presents today with complaints of being told that she has bilateral pulmonary emboli. Patient had a routine follow-up for her renal cell carcinoma which showed pulmonary emboli. Other than the cancer history, patient has no other risk factors for pulmonary emboli. She will be admitted to the hospital. Case was discussed with Dr. Joyce Dorado, [facility] will write admission orders. Medical Screen Exam Complete: Yes Emergency Medical Condition: Yes Differential Diagnosis Differential Diagnosis: Pulmonary embolus versus pneumonia versus metastatic disease to the lung Lab Data Result diagrams: 05/19/18 18:30 05/19/18 18:30 Lab Results 05/19/18 05/19/18 05/19/18 Range/Units 18:30 18:30 18:30 WBC 18.7 H (4.0-11.0) th/mm3 RBC 4.93 (4.00-5.30) mil/mm3 Hgb 15.4 H (11.6-15.3) gm/dL Hct 45.9 (35.0-46.0) % MCV 93.0 (80.0-100.0) fL MCH 31.2 (27.0-34.0) pg MCHC 33.5 (32.0-36.0) % RDW 14.3 (11.6-17.2) % Plt Count 542 H (150-450) th/mm3 MPV 8.1 (7.0-11.0) fL Neut % (Auto) 67.3 (16.0-70.0) % Lymph % (Auto) 22.7 (9.0-44.0) % [place] % (Auto) 7.2 (0.0-8.0) % Eos % (Auto) 1.8 (0.0-4.0) % Baso % (Auto) 1.0 (0.0-2.0) % Neut # (Auto) 12.6 H (1.8-7.7) th/mm3 Lymph # (Auto) 4.2 (1.0-4.8) th/mm3 [place] # (Auto) 1.3 H (0.0-0.9) th/mm3 Eos # (Auto) 0.3 (0.0-0.4) th/mm3 Baso # (Auto) 0.2 (0.0-0.2) th/mm3 WBC Differential . Differential Comment Auto diff final PT 10.0 (9.8-11.6) sec INR 1.0 Ratio APTT 24.8 (24.3-30.1) sec Sodium 140 (136-145) meq/L Potassium 3.7 (3.5-5.1) meq/L Chloride 106 (98-107) meq/L Carbon Dioxide 23.4 (21.0-32.0) meq/L Anion Gap 11 (5-15) meq/L BUN 12 (7-18) mg/dL Creatinine 0.98 (0.50-1.00) mg/dL Estimated GFR 58 L (>89) mL/min Random Glucose 120 H (74-106) mg/dL Calcium 8.8 (8.5-10.1) mg/dL Total Bilirubin 0.3 (0.2-1.0) mg/dL AST 34 (15-37) U/L ALT 30 (10-53) U/L Alkaline Phosphatase 148 H (45-117) U/L Total Protein 8.2 (6.4-8.2) g/dL Albumin 3.3 L (3.4-5.0) g/dL Discharge Plan Discharge Disposition Patient Disposition: 30 Still Patient Discharge Details Diagnosis: Bilateral pulmonary embolism, History of renal cell carcinoma Physicians Team ED Provider: Phu Shaw Primary Care Provider: Anita Nichols Attending Provider: Angy Dorado Discharge Interventions Interventions: Vital Signs Last Done: 05/19/18 19:25 Status ED Status: Admitted Patient
[2018-05-19] MEDS ORDERED: Bisacodyl 10 MG Supp RECTAL PRN (19:50)
[2018-05-19] MEDS ORDERED: Dextrose 50% in Water 50 ML Vial IV.PUSH PRN (19:58)
[2018-05-19] MEDS ORDERED: Heparin 10,000 UNITS/10 ML Vial (for IV use) IV.PUSH STA (20:26)
--- NOTE | 2018-05-19 20:42 | XR ---
EXAM DATE: 05/19/2018 8:31 PM EDT AGE/SEX: 57 years / Female INDICATIONS: Shortness of breath. CLINICAL DATA: This is the patient's initial encounter. Patient reports that signs and symptoms have been present for 1 day and indicates a pain score of Nonresponsive. MEDICAL/SURGICAL HISTORY: None. None. COMPARISON: [facility], CHEST SINGLE AP, 09/09/2016. . FINDINGS: A single AP view of the chest demonstrates the lungs to be symmetrically hypoinflated with some crowd ing of the bronchopulmonary markings. No confluent infiltrate. Even accounting for the low lung volumes, heart size is borderline prominent but well compensated. Os seous structures are intact. CONCLUSION: 1. Hypoinflation with no acute cardiopulmonary process. 2. Heart size is borderline prominent but well compensated. Electronically signed by: Juanito Jeffers MD 05/19/2018 8:40 PM EDT
--- NOTE | 2018-05-19 21:04 | P.HPIM ---
History of Present Illness Service: [facility] Primary Care Physician: Anita Nichols MD Chief Complaint: sob History of Present Illness: 57 y/o male with a history of DM, renal cell carcinoma, depression and htn was sent to the ED by DR. Cordero her oncologist after bilateral PE's were discovered on outpatient CT scan. She states she has been having shortness of breath with exertion and she had the CT to see if she had any recurrence of cancer, and this is when the bilateral PE's were discovered. She states she has been having chest pressure when she takes a deep breath. Denies any fever, chills, headache , dizziness, long car rides or calf pain. Inpatient Certification: I certify that the inpatient services were ordered in accordance with Medicare regulations governing the order. This includes certification that hospital inpatient services are reasonable and necessary and in the case of services not specified as inpatient-only under 42 CFR 419.22(n), that they are appropriately provided as inpatient services in accordance to with the 2-midnight benchmark under 43 CFR 412.3(e) Estimated Total Length of Stay (Days): 2 Plans for Post Hospital Care: Home [facility] - History History Provided By: Patient - Medical History Medical History: Medical History (Last Reviewed 05/19/18 @ 21:07 by BARBARA Fox) Diabetes mellitus HTN (hypertension) History of kidney cancer Obesity Bulging of cervical intervertebral disc Horseshoe kidney Nerve pain - Surgical History Surgical History: Surgical History (Last Reviewed 05/19/18 @ 21:07 by BARBARA Fox) History of cholecystectomy History of splenectomy - Family History Family History: Family History (Last Reviewed 05/19/18 @ 21:07 by BARBARA Fox) Grandparent Breast cancer Mother Throat cancer - Social History I have reviewed the patient's Social History: Yes - Tobacco History Smoking Status: Former smoker - Alcohol History How Often Do You Have a Drink Containing Alcohol: Monthly or less - Substance Use History Substance History: Past History - Travel History Recent Travel in the [place] Within the Last 8 Weeks: No Recent Travel Out of the Country Within the Last 8 Weeks: No - Immunization History Tetanus Immunization: >5 Years Medications and Allergies Active Medications: Active Medications Al Hydroxide/Mg Hydroxide (Milk Of Magnesia Liq) 30 ml PO Q12H PRN PRN Reason: Mild Constipation Bisacodyl (Dulcolax Supp) 10 mg RECTAL DAILY PRN PRN Reason: SEVERE CONSITIPATION Bupropion HCl (Wellbutrin Sr) 150 mg PO Q24H ZEINAB Dextrose (D50w Vial) 50 ml IV.PUSH UNSCH PRN PRN Reason: PER HYPOGLYCEMIA PROTOCOL Ezetimibe (Zetia) 10 mg PO DAILY ZEINAB Glimepiride (Amaryl) 2 mg PO BID ZEINAB Glucagon (Glucagon Inj) 1 mg OTHER PRN PRN PRN Reason: for Hypoglycemia Protocol Heparin Sodium/Dextrose (Heparin/D5w 25,000 U/250 Ml) 25,000 unit in 250 mls @ 18 mls/hr IV.CONT TITRATE PRN; Protocol PRN Reason: Per Protocol Insulin Aspart (Novolog Insulin Correctional Sugar Inj) 0 unit SQ ACHS ZEINAB; Protocol Lactulose (Lactulose Liq) 30 ml PO DAILY PRN PRN Reason: SEVERE CONSITIPATION Losartan Potassium (Cozaar) 25 mg PO DAILY ZEINAB Metoprolol Succinate (Toprol Xl) 100 mg PO DAILY ZEINAB Nifedipine (Procardia Xl) 30 mg PO DAILY ZEINAB Pantoprazole Sodium (Protonix) 20 mg PO DAILY ZEINAB Sennosides (Senokot) 17.2 mg PO Q12H PRN PRN Reason: Moderate Constipation Sertraline HCl (Zoloft) 50 mg PO DAILY ZEINAB Allergies Allergy/AdvReac Type Severity Reaction Status Date / Time ciprofloxacin Allergy Mild Itching Verified 05/19/18 17:55 Home Medications Medication Instructions Recorded Confirmed Type bupropion HCl 150 mg PO QAM 02/28/18 05/19/18 History canagliflozin [Invokana] 300 mg PO QAM 02/28/18 05/19/18 History ezetimibe 10 mg PO DAILY 02/28/18 05/19/18 History glimepiride 2 mg PO BID 02/28/18 05/19/18 History losartan 25 mg PO DAILY 02/28/18 05/19/18 History metoprolol succinate 100 mg PO DAILY 02/28/18 05/19/18 History nifedipine 30 mg PO DAILY 02/28/18 05/19/18 History omeprazole 20 mg PO DAILY 02/28/18 05/19/18 History sertraline 50 mg PO DAILY 02/28/18 05/19/18 History calcipotriene-betamethasone 1 applic TOPICAL DAILY 05/19/18 05/19/18 History Exam Vital signs: Vital Signs 05/19/18 17:35 05/19/18 18:00 05/19/18 19:25 Temperature 99.0 F Pulse Rate 102 H 97 H Respiratory Rate 18 17 Blood Pressure 165/89 H 137/79 145/59 H Pulse Oximetry 93 L 94 L 96 Intake & Output 05/19/18 05/19/18 05/20/18 06:59 18:59 06:59 Weight 115.666 kg Narrative: GENERAL: This is a well-nourished, well-developed patient, who is short of breath with exertion. SKIN: Warm, dry, intact, no ecchymosis or open lesions EYES: Pupils equal round and reactive, no scleral edema or drainage CARDIOVASCULAR: Regular rate and rhythm without murmurs, gallops, or rubs. RESPIRATORY: Diminished Breath sounds equal bilaterally. No wheezes, rales, or rhonchi. GASTROINTESTINAL: Abdomen soft, non-tender, nondistended. Normal active bowel sounds MUSCULOSKELETAL: Extremities without clubbing, cyanosis, or edema. NEURO: Alert & Oriented x4 to person, place, time, situation. Moves all ext x4 Results - Labs CBC & Chem 7: 05/19/18 18:30 05/19/18 18:30 Labs: Short CBC 05/19/18 Range/Units 18:30 WBC 18.7 H (4.0-11.0) th/mm3 Hgb 15.4 H (11.6-15.3) gm/dL Hct 45.9 (35.0-46.0) % Plt Count 542 H (150-450) th/mm3 BMP 05/19/18 18:30 Sodium 140 Potassium 3.7 Chloride 106 Carbon Dioxide 23.4 BUN 12 Creatinine 0.98 Calcium 8.8 Liver Function 05/19/18 Range/Units 18:30 Total Bilirubin 0.3 (0.2-1.0) mg/dL AST 34 (15-37) U/L ALT 30 (10-53) U/L Alkaline Phosphatase 148 H (45-117) U/L Albumin 3.3 L (3.4-5.0) g/dL - Imaging Impressions Chest X-Ray 05/19/18 00:00 CONCLUSION: 1. Hypoinflation with no acute cardiopulmonary process. 2. Heart size is borderline prominent but well compensated. Caprini VTE Risk Assessment Caprini VTE Risk Assessment: Moderate/High Risk (score >= 2) Caprini Risk Assessment Model: Point Value = 1 Point Value = 2 Point Value = 3 Point Value = 5 Age 41-60 Minor surgery BMI > 25 kg/m2 Swollen legs Varicose veins or History of unexplained or recurrent spontaneous Oral contraceptives or hormone replacement Sepsis (< 1 month) Serious lung disease, including pneumonia (< 1 month) Abnormal pulmonary function Acute myocardial infarction Congestive heart failure (< 1 month) History of inflammatory bowel disease Medical patient at bed rest Age 61-74 Arthroscopic surgery Major open surgery (> 45 min) Laparoscopic surgery (> 45 min) Malignancy Confined to bed (> 72 hours) Immobilizing plaster cast Central venous access Age >= 75 History of VTE Family history of VTE Factor V Leiden Prothrombin [id number] Lupus anticoagulant Anticardiolipin antibodies Elevated serum homocysteine Heparin-induced thrombocytopenia Other congenital or acquired thrombophilia Stroke (< 1 month) Elective arthroplasty Hip, pelvis, or leg fracture Acute spinal cord injury (< 1 month) Prophylaxis Regimen: Total Risk Factor Score Risk Level Prophylaxis Regimen 0-1 Low Early ambulation 2 Moderate Order ONE of the following: *Sequential Compression Device (SCD) *Heparin 5000 units SQ BID 3-4 Higher Order ONE of the following medications: *Heparin 5000 units SQ TID *Enoxaparin/Lovenox 40 mg SQ daily (WT < 150 kg, CrCl > 30 mL/min) *Enoxaparin/Lovenox 30 mg SQ daily (WT < 150 kg, CrCl > 10-29 mL/min) *Enoxaparin/Lovenox 30 mg SQ BID (WT < 150 kg, CrCl > 30 mL/min) AND/OR *Sequential Compression Device (SCD) 5 or more Highest Order ONE of the following medications: *Heparin 5000 units SQ TID (Preferred with Epidurals) *Enoxaparin/Lovenox 40 mg SQ daily (WT < 150 kg, CrCl > 30 mL/min) *Enoxaparin/Lovenox 30 mg SQ daily (WT < 150 kg, CrCl > 10-29 mL/min) *Enoxaparin/Lovenox 30 mg SQ BID (WT < 150 kg, CrCl > 30 mL/min) AND *Sequential Compression Device (SCD) Assessment and Plan - Plan 57 y/o male with a history of DM, renal cell carcinoma, depression and htn was sent to the ED by DR. Cordero her oncologist after bilateral PE's were discovered on outpatient CT scan. Bilateral Pulmonary embolism Outpatient CT revealed bilateral PE's -Heparin Drip -Oxygen as needed -Transition to p.o. anticoagulation tomorrow History of renal cell carcinoma -Consult Dr. Cordero, patient's oncologist HTN, chronic -Resume home medications of Nifedipine, metoprolol and losartan, monitor vitals DM, chronic -Diabetic diet -Accu check with SSI -Resume home glimepiride, hold invokana while in hospital DVT prophylaxis: Heparin Drip Discussed Condition With: Patient and RN
[2018-05-19] MEDS: Insulin NovoLOG Aspart Correctional Sugar Inj SQ SCH (21:21)
[2018-05-19] MEDS: Glimepiride 2 MG Tablet PO SCH (21:30)
[2018-05-19] MEDS: buPROPion 150 MG 12 HR Tablet PO SCH (21:30)
[2018-05-19] MEDS: Heparin Drip 25,000 UNIT/250 ML BAG IV.CONT PRN (22:12)
[2018-05-20 04:17] LABS: Baso # (Auto) 0.2 th/mm3 (0.0-0.2); Baso % (Auto) 1.4 % (0.0-2.0); Eos # (Auto) 0.6 th/mm3 (0.0-0.4); Eos % (Auto) 4.2 % (0.0-4.0); Hematocrit 42.6 % (35.0-46.0); Hemoglobin 14.8 gm/dL (11.6-15.3); Lymph % (Auto) 37.2 % (9.0-44.0); Mean Corpuscular HGB Conc 34.6 % (32.0-36.0); Mean Corpuscular Hemoglobin 31.9 pg (27.0-34.0); Mean Corpuscular Volume 92.2 fL (80.0-100.0); Mean Platelet Volume 7.5 fL (7.0-11.0); Mono # (Auto) 0.8 th/mm3 (0.0-0.9); Mono % (Auto) 6.2 % (0.0-8.0); Neut # (Auto) 6.9 th/mm3 (1.8-7.7); Platelet Count 497 th/mm3 (150-450); Red Blood Count 4.63 mil/mm3 (4.00-5.30); Red Cell Distribution Width 14.4 % (11.6-17.2); White Blood Count 13.5 th/mm3 (4.0-11.0)
[2018-05-20 04:46] LABS: Platelet Morphology Normal (Normal); RBC Morphology Normal (Normal)
[2018-05-20 04:49] LABS: Albumin 3.1 g/dL (3.4-5.0); Anion Gap 10 meq/L (5-15); Aspartate Aminotransferase 26 U/L (15-37); Blood Urea Nitrogen 10 mg/dL (7-18); Calcium 8.5 mg/dL (8.5-10.1); Carbon Dioxide 24.5 meq/L (21.0-32.0); Chloride 107 meq/L (98-107); Glomerular Filtration Rate 73 mL/min (>89); Glucose,Random 142 mg/dL (74-106); Potassium 3.6 meq/L (3.5-5.1); Sodium 141 meq/L (136-145)
[2018-05-20 04:50] LABS: Alanine Aminotransferase 27 U/L (10-53)
[2018-05-20 04:52] LABS: Alkaline Phosphatase 138 U/L (45-117); Total Protein 7.7 g/dL (6.4-8.2)
[2018-05-20] MEDS: Insulin NovoLOG Aspart Correctional Sugar Inj SQ SCH ×4 (08:24→20:09)
[2018-05-20] MEDS: Ezetimibe 10 MG Tablet PO SCH (08:57)
[2018-05-20] MEDS: Sertraline 50 MG Tablet PO SCH (08:57)
[2018-05-20] MEDS: Pantoprazole Sodium 20 MG DR Tablet PO SCH (08:58)
[2018-05-20] MEDS: Glimepiride 2 MG Tablet PO SCH ×2 (08:58→20:06)
[2018-05-20] MEDS: Heparin Drip 25,000 UNIT/250 ML BAG IV.CONT PRN (12:39)
--- NOTE | 2018-05-20 12:51 | P.PNIM ---
Subjective Interval history: Chief Complaint: sob History of Present Illness: 57 y/o male with a history of DM, renal cell carcinoma, depression and htn was sent to the ED by DR. Cordero her oncologist after bilateral PE's were discovered on outpatient CT scan. She states she has been having shortness of breath with exertion and she had the CT to see if she had any recurrence of cancer, and this is when the bilateral PE's were discovered. She states she has been having chest pressure when she takes a deep breath. Denies any fever, chills, headache , dizziness, long car rides or calf pain. 05-20 CONSULT ONCOLOGY HYPERCOAGUABLE WORKUP US OF BL LE PAIN CONTROL HEPARIN DRIP DEFER TO ONCOLOGY FOR PO ANTICOAGULATION WITH HX OF RENAL CELL CARCINOMA AM LABS Physical Exam Vital signs: Vital Signs 05/19/18 17:35 05/19/18 18:00 05/19/18 19:25 Temperature 99.0 F Pulse Rate 102 H 97 H Respiratory Rate 18 18 17 Blood Pressure 165/89 H 137/79 145/59 H Pulse Oximetry 93 L 94 L 96 05/19/18 21:42 05/20/18 00:00 05/20/18 08:00 Temperature 97.9 F 97.7 F Pulse Rate 73 69 60 Respiratory Rate 17 20 16 Blood Pressure 126/91 H 100/56 L 114/77 Pulse Oximetry 96 94 L 97 Intake & Output 05/19/18 05/20/18 05/20/18 18:59 06:59 18:59 Intake Total 200 / 200 250 / 250 Balance 200 / 200 250 / 250 Weight 115.666 kg 172.72 kg Intake: IV 250 / 250 Heparin/D5W 25,000 U/250 mL 25, 250 / 250 000 unit In 250 ml @ 1,800 UNITS/HR 18 mls/hr IV.CONT TITRATE PRN Rx#:[id number] Oral 200 / 200 Other: # Voids 1 Date of Last Bowel Movement 05/19/18 Weight On Admission 172.72 kg Narrative: GENERAL: This is a well-nourished, well-developed patient, who is short of breath with exertion. SKIN: Warm, dry, intact, no ecchymosis or open lesions EYES: Pupils equal round and reactive, no scleral edema or drainage CARDIOVASCULAR: Regular rate and rhythm without murmurs, gallops, or rubs. RESPIRATORY: Diminished Breath sounds equal bilaterally. No wheezes, rales, or rhonchi. GASTROINTESTINAL: Abdomen soft, non-tender, nondistended. Normal active bowel sounds MUSCULOSKELETAL: Extremities without clubbing, cyanosis, or edema. NEURO: Alert & Oriented x4 to person, place, time, situation. Moves all ext x4 Results - Labs CBC & Chem 7: 05/20/18 04:06 05/20/18 04:06 Laboratory Results - last 24 hr 05/19/18 05/19/18 05/19/18 18:30 18:30 18:30 WBC 18.7 H RBC 4.93 Hgb 15.4 H Hct 45.9 MCV 93.0 MCH 31.2 MCHC 33.5 RDW 14.3 Plt Count 542 H MPV 8.1 Prelim Diff (Auto) Neut % (Auto) 67.3 Lymph % (Auto) 22.7 [place] % (Auto) 7.2 Eos % (Auto) 1.8 Baso % (Auto) 1.0 Neut # (Auto) 12.6 H Lymph # (Auto) 4.2 [place] # (Auto) 1.3 H Eos # (Auto) 0.3 Baso # (Auto) 0.2 WBC Differential . Diff Scan Differential Comment Auto diff final Platelet Estimate Platelet Morphology RBC Morphology PT 10.0 INR 1.0 APTT 24.8 Sodium 140 Potassium 3.7 Chloride 106 Carbon Dioxide 23.4 Anion Gap 11 BUN 12 Creatinine 0.98 Estimated GFR 58 L POC Glucose Random Glucose 120 H Calcium 8.8 Total Bilirubin 0.3 AST 34 ALT 30 Alkaline Phosphatase 148 H Total Protein 8.2 Albumin 3.3 L 05/20/18 05/20/18 05/20/18 04:06 04:06 04:06 WBC 13.5 H RBC 4.63 Hgb 14.8 Hct 42.6 MCV 92.2 MCH 31.9 MCHC 34.6 RDW 14.4 Plt Count 497 H MPV 7.5 Prelim Diff (Auto) Slide review pending Neut % (Auto) 51.0 Lymph % (Auto) 37.2 [place] % (Auto) 6.2 Eos % (Auto) 4.2 H Baso % (Auto) 1.4 Neut # (Auto) 6.9 Lymph # (Auto) 5.0 H [place] # (Auto) 0.8 Eos # (Auto) 0.6 H Baso # (Auto) 0.2 WBC Differential . Diff Scan Auto diff confirmed Differential Comment . Platelet Estimate High H Platelet Morphology Normal RBC Morphology Normal PT INR APTT 40.4 H D Sodium 141 Potassium 3.6 Chloride 107 Carbon Dioxide 24.5 Anion Gap 10 BUN 10 Creatinine 0.81 Estimated GFR 73 L POC Glucose Random Glucose 142 H Calcium 8.5 Total Bilirubin 0.4 AST 26 ALT 27 Alkaline Phosphatase 138 H Total Protein 7.7 Albumin 3.1 L 05/20/18 05/20/18 05/20/18 07:47 10:30 12:01 WBC RBC Hgb Hct MCV MCH MCHC RDW Plt Count MPV Prelim Diff (Auto) Neut % (Auto) Lymph % (Auto) [place] % (Auto) Eos % (Auto) Baso % (Auto) Neut # (Auto) Lymph # (Auto) [place] # (Auto) Eos # (Auto) Baso # (Auto) WBC Differential Diff Scan Differential Comment Platelet Estimate Platelet Morphology RBC Morphology PT INR APTT 41.2 H Sodium Potassium Chloride Carbon Dioxide Anion Gap BUN Creatinine Estimated GFR POC Glucose 126 H 192 H Random Glucose Calcium Total Bilirubin AST ALT Alkaline Phosphatase Total Protein Albumin - Imaging Impressions Chest X-Ray 05/19/18 00:00 CONCLUSION: 1. Hypoinflation with no acute cardiopulmonary process. 2. Heart size is borderline prominent but well compensated. Assessment and Plan - Plan 57 y/o male with a history of DM, renal cell carcinoma, depression and htn was sent to the ED by DR. Cordero her oncologist after bilateral PE's were discovered on outpatient CT scan. Bilateral Pulmonary embolism Outpatient CT revealed bilateral PE's -Heparin Drip -Oxygen as needed -Transition to p.o. anticoagulation tomorrow ANTICOAGULATION PER ONCOLOGY History of renal cell carcinoma -Consult Dr. Cordero, patient's oncologist HTN, chronic -Resume home medications of Nifedipine, metoprolol and losartan, monitor vitals DM, chronic -Diabetic diet -Accu check with SSI -Resume home glimepiride, hold invokana while in hospital DVT prophylaxis: Heparin Drip PT AND OT TO EVAL AND TREAT WILL GET BL LE US TO RULE OUT DVT VS HYPERCOAGULABLE STATE Code Status: FULL CODE Discussed Condition With: RN AND PT AND CM Discharge Planning: ONCE CLEARED BY ONCOLOGY AND ON ANTICOAGULATION
--- NOTE | 2018-05-20 14:01 | MH ---
cc: Mckinley Marshall MD DATE OF ADMISSION: 05/19/2018 REQUESTING PHYSICIAN: Hermilo Gautam DO. REASON FOR CONSULTATION: Evaluation of a lady with history of renal cell cancer, admitted with bilateral pulmonary emboli. HISTORY OF PRESENT ILLNESS: A 57-year-old pleasant lady who is a patient of Dr. Cordero with a history of renal cell carcinoma diagnosed in 2010, status post partial nephrectomy of a horseshoe kidney, recently admitted with finding of new onset bilateral pulmonary emboli on routine CT scans performed for followup of her history of cancer. 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 She was being evaluated for the same with CT scans and for possible surgery to the spine. CT scan showed incidental finding of bilateral pulmonary embolism. The patient was called at home by Dr. Cordero and sent to the emergency room and was admitted to the hospital. The hospitalist started her on IV heparin and hematology consultation was requested for the new finding. Mrs. Ritchie is totally asymptomatic, specifically without any cough, chest pain, or shortness of breath. No hemoptysis. REVIEW OF SYSTEMS: No headaches, motor or sensory symptoms. She does have chronic neck pain radiating to the left shoulder and that is from degenerative joint disease requiring surgery according to her and she is consulting a neurosurgeon for that. No orthopnea or PND. No abdominal pain, distention, blood in stool, or black stools. No frequency, urgency, or hematuria. No fevers, night sweats, or weight loss. PAST MEDICAL HISTORY: As above. She also has obesity, diabetes, hypertension. No prior history of DVT or PE. No known hypercoagulable history. PAST SURGICAL HISTORY: As above. 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 SOCIAL HISTORY: Nonsmoker. No alcohol abuse. She quit smoking several years ago. FAMILY HISTORY: Noncontributory. PHYSICAL EXAMINATION: GENERAL: Obese, middle-aged lady, in no apparent distress. No pallor, icterus. NECK: No palpable adenopathy in the neck or axilla. C-spine tenderness without focal deficit. No meningeal signs. No JVD. HEENT: Without oropharyngeal lesions. NEUROLOGIC: Alert and oriented x4. CARDIOVASCULAR: S1, S2, regular rate and rhythm. LUNGS: Bilaterally clear without crackles or wheeze. ABDOMEN: Quite obese and distended, soft, nontender without palpable organomegaly. EXTREMITIES: Without calf tenderness bilateral. Negative Cliff sign. LABORATORY DATA: Significant for mild elevation of white count of 18.7 yesterday and decreasing to 13.5 today with normal hemoglobin of 14.8 and platelets slightly elevated at 497. Creatinine 0.81 and GFR is 73. Alkaline phosphatase is 138. Dr. Cordero's notes from 05/01/2017 reviewed. ASSESSMENT PLAN: A 57-year-old lady with a history of renal cell cancer, status post partial nephrectomy approximately 10 years ago with no evidence of disease recurrence and no evidence of distant metastatic disease at this time, but has bilateral pulmonary emboli proven on CT scan. Hence, she will need to have hypercoagulable workup in addition to ultrasound of the lower extremities to rule out DVTs. This was discussed with the patient and Dr. Gautam. I will see her in followup as needed. She is on IV heparin at this time and she can be discharged on oral NOACs. Mckinley Marshall MD MVA/ts , 01:22 PM , 01:30 PM
--- NOTE | 2018-05-20 15:25 | US ---
EXAM DATE: 05/20/2018 3:15 PM EDT AGE/SEX: 57 years / Female INDICATIONS: Bilateral leg swelling. CLINICAL DATA: This is the patient's initial encounter. Patient reports that signs and symptoms have been present for 1 day and indicates a pain score of 0/10. MEDICAL/SURGICAL HISTORY: Diabetes. Hypertension. Bulging of cervical intervertebral disc. Kid stacey cancer. Nerve pain. Cholecystectomy. Splenectomy. COMPARISON: POI, MR KNEE W/O CONTRAST, LEFT, 11/11/2016. . TECHNIQUE: Venous ultrasound of both lower extremities was performed from the inguinal ligament to t he proximal calf. Real-time, color Doppler and spectral tracing, compression and augmentation techni ques were used. FINDINGS: Right Leg: Normal compression of the deep venous system from the inguinal region to the proximal osmin f. No echogenic clot is seen. Normal response of the venous system to augmentation and respiration. Left Leg: Normal compression of the deep venous system from the inguinal region to the proximal calf . No echogenic clot is seen. Normal response of the venous system to augmentation and respiration. Other: None. CONCLUSION: 1. No evidence of deep venous thrombosis. Electronically signed by: Bradley Moncada MD 05/20/2018 3:23 PM EDT
[2018-05-20 15:35] LABS: Activated Partial Thrombo Time 33.2 sec (24.3-30.1); Prothrombin Time 10.2 sec (9.8-11.6)
[2018-05-20 15:42] LABS: D-Dimer 1.41 mg/L FEU (0.00-0.50)
[2018-05-20] MEDS: buPROPion 150 MG 12 HR Tablet PO SCH (20:06)
[2018-05-21] MEDS: Heparin Drip 25,000 UNIT/250 ML BAG IV.CONT PRN (02:52)
[2018-05-21 05:45] LABS: Baso # (Auto) 0.1 th/mm3 (0.0-0.2); Eos # (Auto) 0.7 th/mm3 (0.0-0.4); Eos % (Auto) 5.1 % (0.0-4.0); Hematocrit 41.9 % (35.0-46.0); Hemoglobin 14.2 gm/dL (11.6-15.3); Lymph # (Auto) 4.9 th/mm3 (1.0-4.8); Mean Corpuscular HGB Conc 33.9 % (32.0-36.0); Mean Corpuscular Hemoglobin 31.6 pg (27.0-34.0); Mean Corpuscular Volume 93.1 fL (80.0-100.0); Mean Platelet Volume 7.7 fL (7.0-11.0); Mono % (Auto) 7.4 % (0.0-8.0); Neut # (Auto) 6.9 th/mm3 (1.8-7.7); Neut % (Auto) 50.5 % (16.0-70.0); Platelet Count 509 th/mm3 (150-450); Red Cell Distribution Width 14.3 % (11.6-17.2); White Blood Count 13.6 th/mm3 (4.0-11.0)
[2018-05-21 06:01] LABS: Activated Partial Thrombo Time 51.8 sec (24.3-30.1); Prothrombin Time 10.3 sec (9.8-11.6)
[2018-05-21 06:17] LABS: Albumin 2.9 g/dL (3.4-5.0); Anion Gap 9 meq/L (5-15); Aspartate Aminotransferase 23 U/L (15-37); Blood Urea Nitrogen 10 mg/dL (7-18); Calcium 8.5 mg/dL (8.5-10.1); Carbon Dioxide 25.6 meq/L (21.0-32.0); Chloride 108 meq/L (98-107); Glomerular Filtration Rate 78 mL/min (>89); Glucose,Random 120 mg/dL (74-106); Magnesium 2.2 mg/dL (1.5-2.5); Potassium 3.7 meq/L (3.5-5.1); Sodium 143 meq/L (136-145)
[2018-05-21 06:18] LABS: Alanine Aminotransferase 26 U/L (10-53)
[2018-05-21 06:28] LABS: Alkaline Phosphatase 133 U/L (45-117); Free T4 (Free Thyroxine) 0.97 ng/dL (0.76-1.46); Total Protein 7.4 g/dL (6.4-8.2)
[2018-05-21] MEDS: Insulin NovoLOG Aspart Correctional Sugar Inj SQ SCH ×2 (08:26→12:02)
[2018-05-21] MEDS: Sertraline 50 MG Tablet PO SCH (08:27)
[2018-05-21] MEDS: Pantoprazole Sodium 20 MG DR Tablet PO SCH (08:27)
[2018-05-21] MEDS: Ezetimibe 10 MG Tablet PO SCH (08:27)
[2018-05-21] MEDS: Glimepiride 2 MG Tablet PO SCH (08:27)
[2018-05-21 09:58] VITALS: RESP 17; TEMP 97.8
--- NOTE | 2018-05-21 11:52 | P.PNIM ---
Subjective Interval history: 57 y/o male with a history of DM, renal cell carcinoma, depression and htn was sent to the ED by DR. Cao her oncologist after bilateral PE's were discovered on outpatient CT scan. She states she has been having shortness of breath with exertion and she had the CT to see if she had any recurrence of cancer, and this is when the bilateral PE's were discovered. She states she has been having chest pressure when she takes a deep breath. Denies any fever, chills, headache , dizziness, long car rides or calf pain. 05-20 CONSULT ONCOLOGY HYPERCOAGUABLE WORKUP US OF BL LE PAIN CONTROL HEPARIN DRIP DEFER TO ONCOLOGY FOR PO ANTICOAGULATION WITH HX OF RENAL CELL CARCINOMA AM LABS 05-21 bilateral lower extremity ultrasounds of the lower extremities are completely negative for any DVTs. Patient wants to go home We will switch to Eliquis twice daily and discharge to home today Follow-up with oncology Dr. Cao this week We will start on Eliquis for her anticoagulation Have discussed already with our pharmacist here and will discontinue the heparin drip since patient is now on Eliquis and therapeutic 2 hours after starting Eliquis Will need anticoagulation for minimum 6 months may be lifelong Physical Exam Vital signs: Vital Signs 05/20/18 12:00 05/20/18 16:00 05/20/18 20:00 Temperature 97.8 F 98.4 F 97.8 F Pulse Rate 69 67 70 Respiratory Rate 17 17 20 Blood Pressure 138/71 132/74 108/63 Pulse Oximetry 96 96 96 05/21/18 00:00 05/21/18 01:15 05/21/18 04:51 Temperature 98.1 F Pulse Rate 69 Respiratory Rate 18 18 18 Blood Pressure 115/63 Pulse Oximetry 96 05/21/18 08:00 Temperature 97.8 F Pulse Rate 63 Respiratory Rate 17 Blood Pressure 114/56 L Pulse Oximetry 94 L Intake & Output 05/20/18 05/21/18 05/21/18 18:59 06:59 18:59 Intake Total 2049 830 / 830 Balance 2049 830 / 830 Weight 122.4 kg Intake: IV 250 / 250 250 / 250 Heparin/D5W 25,000 U/250 mL 25, 250 / 250 250 / 250 000 unit In 250 ml @ 1,800 UNITS/HR 18 mls/hr IV.CONT TITRATE PRN Rx#:[id number] Oral 1800 / 1800 580 / 580 Other: # Voids 3 4 Date of Last Bowel Movement 05/19/18 Narrative: GENERAL: This is a well-nourished, well-developed patient, who is short of breath with exertion. SKIN: Warm, dry, intact, no ecchymosis or open lesions EYES: Pupils equal round and reactive, no scleral edema or drainage CARDIOVASCULAR: Regular rate and rhythm without murmurs, gallops, or rubs. RESPIRATORY: Diminished Breath sounds equal bilaterally. No wheezes, rales, or rhonchi. GASTROINTESTINAL: Abdomen soft, non-tender, nondistended. Normal active bowel sounds MUSCULOSKELETAL: Extremities without clubbing, cyanosis, or edema. NEURO: Alert & Oriented x4 to person, place, time, situation. Moves all ext x4 Results - Labs CBC & Chem 7: 05/21/18 05:25 05/21/18 05:25 Laboratory Results - last 24 hr 05/20/18 05/20/18 05/20/18 12:01 14:25 14:25 WBC RBC Hgb Hct MCV MCH MCHC RDW Plt Count MPV Neut % (Auto) Lymph % (Auto) Scurry % (Auto) Eos % (Auto) Baso % (Auto) Neut # (Auto) Lymph # (Auto) Scurry # (Auto) Eos # (Auto) Baso # (Auto) WBC Differential Differential Comment PT 10.2 INR 1.0 APTT 33.2 H Fibrinogen 499 H D-Dimer Quant (PE/DVT) 1.41 H Sodium Potassium Chloride Carbon Dioxide Anion Gap BUN Creatinine Estimated GFR POC Glucose 192 H Random Glucose Calcium Magnesium Total Bilirubin AST ALT Alkaline Phosphatase Total Protein Albumin Homocysteine Cardiovas Cancelled TSH Free T4 05/20/18 05/20/18 05/21/18 16:33 20:07 05:25 WBC 13.6 H RBC 4.50 Hgb 14.2 Hct 41.9 MCV 93.1 MCH 31.6 MCHC 33.9 RDW 14.3 Plt Count 509 H MPV 7.7 Neut % (Auto) 50.5 Lymph % (Auto) 36.0 Scurry % (Auto) 7.4 Eos % (Auto) 5.1 H Baso % (Auto) 1.0 Neut # (Auto) 6.9 Lymph # (Auto) 4.9 H Scurry # (Auto) 1.0 H Eos # (Auto) 0.7 H Baso # (Auto) 0.1 WBC Differential . Differential Comment Auto diff final PT INR APTT Fibrinogen D-Dimer Quant (PE/DVT) Sodium Potassium Chloride Carbon Dioxide Anion Gap BUN Creatinine Estimated GFR POC Glucose 98 171 H Random Glucose Calcium Magnesium Total Bilirubin AST ALT Alkaline Phosphatase Total Protein Albumin Homocysteine Cardiovas TSH Free T4 05/21/18 05/21/18 05/21/18 05:25 05:25 07:32 WBC RBC Hgb Hct MCV MCH MCHC RDW Plt Count MPV Neut % (Auto) Lymph % (Auto) Scurry % (Auto) Eos % (Auto) Baso % (Auto) Neut # (Auto) Lymph # (Auto) Scurry # (Auto) Eos # (Auto) Baso # (Auto) WBC Differential Differential Comment PT 10.3 INR 1.0 APTT 51.8 H D Fibrinogen D-Dimer Quant (PE/DVT) Sodium 143 Potassium 3.7 Chloride 108 H Carbon Dioxide 25.6 Anion Gap 9 BUN 10 Creatinine 0.76 Estimated GFR 78 L POC Glucose 129 H Random Glucose 120 H Calcium 8.5 Magnesium 2.2 Total Bilirubin 0.3 AST 23 ALT 26 Alkaline Phosphatase 133 H Total Protein 7.4 Albumin 2.9 L Homocysteine Cardiovas TSH 2.520 Free T4 0.97 - Imaging Impressions Venous Doppler Study 05/20/18 00:00 CONCLUSION: 1. No evidence of deep venous thrombosis. - Procedures none Assessment and Plan - Plan 57 y/o male with a history of DM, renal cell carcinoma, depression and htn was sent to the ED by DR. Cao her oncologist after bilateral PE's were discovered on outpatient CT scan. Bilateral Pulmonary embolism Outpatient CT revealed bilateral PE's -Heparin Drip -Oxygen as needed -Transition to p.o. anticoagulation tomorrow ANTICOAGULATION PER ONCOLOGY Start on Eliquis 10 mg p.o. twice daily and then transition to 5 mg p.o. twice daily History of renal cell carcinoma -Consult Dr. Cao, patient's oncologist HTN, chronic -Resume home medications of Nifedipine, metoprolol and losartan, monitor vitals DM, chronic -Diabetic diet -Accu check with SSI -Resume home glimepiride, hold invokana while in hospital DVT prophylaxis: Heparin Drip PT AND OT TO EVAL AND TREAT WILL GET BL LE US TO RULE OUT DVT VS HYPERCOAGULABLE STATE Bilateral ultrasounds were negative for DVTs FOLLOW UP WITH DR CAO Code Status: FULL CODE Discussed Condition With: RN AND PT AND FAMILY AND CM Discharge Planning: DC TO HOME TODAY
--- NOTE | 2018-05-21 12:00 | P.DS ---
Date of admission: 05/19/18 19:02 Primary care physician: Anita Nichols MD Attending physician on discharge: Hermilo Gautam Anticipated date of discharge: 05/21/18 Brief History from admission: 57 y/o male with a history of DM, renal cell carcinoma, depression and htn was sent to the ED by DR. Cordero her oncologist after bilateral PE's were discovered on outpatient CT scan. She states she has been having shortness of breath with exertion and she had the CT to see if she had any recurrence of cancer, and this is when the bilateral PE's were discovered. She states she has been having chest pressure when she takes a deep breath. Denies any fever, chills, headache , dizziness, long car rides or calf pain. Patient update on day of discharge: 57 y/o male with a history of DM, renal cell carcinoma, depression and htn was sent to the ED by DR. Cordero her oncologist after bilateral PE's were discovered on outpatient CT scan. She states she has been having shortness of breath with exertion and she had the CT to see if she had any recurrence of cancer, and this is when the bilateral PE's were discovered. She states she has been having chest pressure when she takes a deep breath. Denies any fever, chills, headache , dizziness, long car rides or calf pain. 10 CONSULT ONCOLOGY HYPERCOAGUABLE WORKUP US OF BL LE PAIN CONTROL HEPARIN DRIP DEFER TO ONCOLOGY FOR PO ANTICOAGULATION WITH HX OF RENAL CELL CARCINOMA AM LABS 05-21 bilateral lower extremity ultrasounds of the lower extremities are completely negative for any DVTs. Patient wants to go home We will switch to Eliquis twice daily and discharge to home today Follow-up with oncology Dr. Cordero this week We will start on Eliquis for her anticoagulation Have discussed already with our pharmacist here and will discontinue the heparin drip since patient is now on Eliquis and therapeutic 2 hours after starting Eliquis Will need anticoagulation for minimum 6 months may be lifelong DS: Diagnosis - Discharge Diagnosis (1) Diabetes Status: Chronic (2) Depression Status: Chronic (3) Hypertension Status: Chronic (4) Bilateral pulmonary embolism Status: Acute (5) History of renal cell carcinoma Status: Chronic DS: Medications - Discharge Medications Prescriptions: apixaban [Eliquis] 1 pack PO PER PKG DIR #1 each DS: Summary Hospital Course: 57 y/o male with a history of DM, renal cell carcinoma, depression and htn was sent to the ED by DR. Cordero her oncologist after bilateral PE's were discovered on outpatient CT scan. She states she has been having shortness of breath with exertion and she had the CT to see if she had any recurrence of cancer, and this is when the bilateral PE's were discovered. She states she has been having chest pressure when she takes a deep breath. Denies any fever, chills, headache , dizziness, long car rides or calf pain. 05-20 CONSULT ONCOLOGY HYPERCOAGUABLE WORKUP US OF BL LE PAIN CONTROL HEPARIN DRIP DEFER TO ONCOLOGY FOR PO ANTICOAGULATION WITH HX OF RENAL CELL CARCINOMA AM LABS 05-21 bilateral lower extremity ultrasounds of the lower extremities are completely negative for any DVTs. Patient wants to go home We will switch to Eliquis twice daily and discharge to home today Follow-up with oncology Dr. Cordero this week We will start on Eliquis for her anticoagulation Have discussed already with our pharmacist here and will discontinue the heparin drip since patient is now on Eliquis and therapeutic 2 hours after starting Eliquis Will need anticoagulation for minimum 6 months may be lifelong - Time Spent with Patient Total time spent providing and/or coordinating discharge services: Greater than 30 minutes - Quality: VTE Deep Vein Thrombosis/Pulmonary Embolism Present on Admission: Yes Exam Vital signs: Vital Signs 05/20/18 12:00 05/20/18 16:00 05/20/18 20:00 Temperature 97.8 F 98.4 F 97.8 F Pulse Rate 69 67 70 Respiratory Rate 17 17 20 Blood Pressure 138/71 132/74 108/63 Pulse Oximetry 96 96 96 05/21/18 00:00 05/21/18 01:15 05/21/18 04:51 Temperature 98.1 F Pulse Rate 69 Respiratory Rate 18 18 18 Blood Pressure 115/63 Pulse Oximetry 96 05/21/18 08:00 Temperature 97.8 F Pulse Rate 63 Respiratory Rate 17 Blood Pressure 114/56 L Pulse Oximetry 94 L Intake & Output 05/20/18 05/21/18 05/21/18 18:59 06:59 18:59 Intake Total 2049 830 / 830 Balance 2049 830 / 830 Weight 122.4 kg Intake: IV 250 / 250 250 / 250 Heparin/D5W 25,000 U/250 mL 25, 250 / 250 250 / 250 000 unit In 250 ml @ 1,800 UNITS/HR 18 mls/hr IV.CONT TITRATE PRN Rx#:[id number] Oral 1800 / 1800 580 / 580 Other: # Voids 3 4 Date of Last Bowel Movement 05/19/18 Narrative: GENERAL: This is a well-nourished, well-developed patient, who is short of breath with exertion. SKIN: Warm, dry, intact, no ecchymosis or open lesions EYES: Pupils equal round and reactive, no scleral edema or drainage CARDIOVASCULAR: Regular rate and rhythm without murmurs, gallops, or rubs. RESPIRATORY: Diminished Breath sounds equal bilaterally. No wheezes, rales, or rhonchi. GASTROINTESTINAL: Abdomen soft, non-tender, nondistended. Normal active bowel sounds MUSCULOSKELETAL: Extremities without clubbing, cyanosis, or edema. NEURO: Alert & Oriented x4 to person, place, time, situation. Moves all ext x4 Results Procedures completed during hospitalization: none Completed studies during hospitalization: Laboratory Results WBC 13.6 th/mm3 (4.0-11.0) H 05/21/18 05:25 RBC 4.50 mil/mm3 (4.00-5.30) 05/21/18 05:25 Hgb 14.2 gm/dL (11.6-15.3) 05/21/18 05:25 Hct 41.9 % (35.0-46.0) 05/21/18 05:25 MCV 93.1 fL (80.0-100.0) 05/21/18 05:25 MCH 31.6 pg (27.0-34.0) 05/21/18 05:25 MCHC 33.9 % (32.0-36.0) 05/21/18 05:25 RDW 14.3 % (11.6-17.2) 05/21/18 05:25 Plt Count 509 th/mm3 (150-450) H 05/21/18 05:25 MPV 7.7 fL (7.0-11.0) 05/21/18 05:25 Prelim Diff (Auto) Slide review pending 05/20/18 04:06 Neut % (Auto) 50.5 % (16.0-70.0) 05/21/18 05:25 Lymph % (Auto) 36.0 % (9.0-44.0) 05/21/18 05:25 [place] % (Auto) 7.4 % (0.0-8.0) 05/21/18 05:25 Eos % (Auto) 5.1 % (0.0-4.0) H 05/21/18 05:25 Baso % (Auto) 1.0 % (0.0-2.0) 05/21/18 05:25 Neut # (Auto) 6.9 th/mm3 (1.8-7.7) 05/21/18 05:25 Lymph # (Auto) 4.9 th/mm3 (1.0-4.8) H 05/21/18 05:25 [place] # (Auto) 1.0 th/mm3 (0.0-0.9) H 05/21/18 05:25 Eos # (Auto) 0.7 th/mm3 (0.0-0.4) H 05/21/18 05:25 Baso # (Auto) 0.1 th/mm3 (0.0-0.2) 05/21/18 05:25 WBC Differential . 05/21/18 05:25 Diff Scan Auto diff confirmed 05/20/18 04:06 Differential Comment Auto diff final 05/21/18 05:25 Platelet Estimate High (Normal) H 05/20/18 04:06 Platelet Morphology Normal (Normal) 05/20/18 04:06 RBC Morphology Normal (Normal) 05/20/18 04:06 PT 10.3 sec (9.8-11.6) 05/21/18 05:25 INR 1.0 Ratio 05/21/18 05:25 APTT 51.8 sec (24.3-30.1) H D 05/21/18 05:25 Fibrinogen 499 mg/dL (227-377) H 05/20/18 14:25 D-Dimer Quant (PE/DVT) 1.41 mg/L FEU (0.00-0.50) H 05/20/18 14:25 Sodium 143 meq/L (136-145) 05/21/18 05:25 Potassium 3.7 meq/L (3.5-5.1) 05/21/18 05:25 Chloride 108 meq/L (98-107) H 05/21/18 05:25 Carbon Dioxide 25.6 meq/L (21.0-32.0) 05/21/18 05:25 Anion Gap 9 meq/L (5-15) 05/21/18 05:25 BUN 10 mg/dL (7-18) 05/21/18 05:25 Creatinine 0.76 mg/dL (0.50-1.00) 05/21/18 05:25 Estimated GFR 78 mL/min (>89) L 05/21/18 05:25 POC Glucose 133 mg/dl (68-110) H 05/21/18 11:55 Random Glucose 120 mg/dL (74-106) H 05/21/18 05:25 Calcium 8.5 mg/dL (8.5-10.1) 05/21/18 05:25 Magnesium 2.2 mg/dL (1.5-2.5) 05/21/18 05:25 Total Bilirubin 0.3 mg/dL (0.2-1.0) 05/21/18 05:25 AST 23 U/L (15-37) 05/21/18 05:25 ALT 26 U/L (10-53) 05/21/18 05:25 Alkaline Phosphatase 133 U/L (45-117) H 05/21/18 05:25 Total Protein 7.4 g/dL (6.4-8.2) 05/21/18 05:25 Albumin 2.9 g/dL (3.4-5.0) L 05/21/18 05:25 Homocysteine Cardiovas Cancelled 05/20/18 14:25 TSH 2.520 uIU/mL (0.358-3.740) 05/21/18 05:25 Free T4 0.97 ng/dL (0.76-1.46) 05/21/18 05:25 Impressions Chest X-Ray 05/19/18 00:00 CONCLUSION: 1. Hypoinflation with no acute cardiopulmonary process. 2. Heart size is borderline prominent but well compensated. Venous Doppler Study 05/20/18 00:00 CONCLUSION: 1. No evidence of deep venous thrombosis. Labs on day of discharge: Labs from last 24 hours 05/21/18 05/21/18 05/21/18 07:32 05:25 05:25 WBC RBC Hgb Hct MCV MCH MCHC RDW Plt Count MPV Neut % (Auto) Lymph % (Auto) [place] % (Auto) Eos % (Auto) Baso % (Auto) Neut # (Auto) Lymph # (Auto) [place] # (Auto) Eos # (Auto) Baso # (Auto) WBC Differential Differential Comment PT INR APTT Thrombin Time Fibrinogen D-Dimer Quant (PE/DVT) Lupus Anticoagulant LA PTT Screen dRVVT Screen Protein C Antigen APC Resistance Protein S Activity Antithrombin III Activ Factor V Leiden Mutat Factor V Leiden Interp Factor VIII Activity von Willebrand Factor von Willebrand Antigen vWF Multimeric Antigen vWF Ristocetin Cofactr von Willebrand Interp Von Willebrand Act PTT Factor IX Activity Sodium 143 Potassium 3.7 Chloride 108 H Carbon Dioxide 25.6 Anion Gap 9 BUN 10 Creatinine 0.76 Estimated GFR 78 L POC Glucose 129 H Random Glucose 120 H Hemoglobin A1c Pending Calcium 8.5 Magnesium 2.2 Total Bilirubin 0.3 AST 23 ALT 26 Alkaline Phosphatase 133 H Total Protein 7.4 Albumin 2.9 L Homocysteine Cardiovas TSH 2.520 Free T4 0.97 Beta-2-GPI IgG Ab Beta-2-GPI IgA Ab Beta-2-GPI IgM Ab Phosphatidylserine IgG Phosphatidylserine IgA Phosphatidylserine IgM Anti-Cardiolipin IgG Ab Anti-Cardiolipin IgM Ab MTHFR Mutation Detect Prothrombin [id number] Mut 05/21/18 05/21/18 05/21/18 05:25 05:25 05:25 WBC 13.6 H RBC 4.50 Hgb 14.2 Hct 41.9 MCV 93.1 MCH 31.6 MCHC 33.9 RDW 14.3 Plt Count 509 H MPV 7.7 Neut % (Auto) 50.5 Lymph % (Auto) 36.0 [place] % (Auto) 7.4 Eos % (Auto) 5.1 H Baso % (Auto) 1.0 Neut # (Auto) 6.9 Lymph # (Auto) 4.9 H [place] # (Auto) 1.0 H Eos # (Auto) 0.7 H Baso # (Auto) 0.1 WBC Differential . Differential Comment Auto diff final PT 10.3 INR 1.0 APTT 51.8 H D Thrombin Time Fibrinogen D-Dimer Quant (PE/DVT) Lupus Anticoagulant LA PTT Screen dRVVT Screen Protein C Antigen APC Resistance Protein S Activity Antithrombin III Activ Factor V Leiden Mutat Factor V Leiden Interp Factor VIII Activity von Willebrand Factor von Willebrand Antigen vWF Multimeric Antigen vWF Ristocetin Cofactr von Willebrand Interp Von Willebrand Act PTT Factor IX Activity Sodium Potassium Chloride Carbon Dioxide Anion Gap BUN Creatinine Estimated GFR POC Glucose Random Glucose Hemoglobin A1c Calcium Magnesium Total Bilirubin AST ALT Alkaline Phosphatase Total Protein Albumin Homocysteine Cardiovas Pending TSH Free T4 Beta-2-GPI IgG Ab Beta-2-GPI IgA Ab Beta-2-GPI IgM Ab Phosphatidylserine IgG Phosphatidylserine IgA Phosphatidylserine IgM Anti-Cardiolipin IgG Ab Anti-Cardiolipin IgM Ab MTHFR Mutation Detect Prothrombin [id number] Mut 05/20/18 05/20/18 05/20/18 20:07 16:33 14:25 WBC RBC Hgb Hct MCV MCH MCHC RDW Plt Count MPV Neut % (Auto) Lymph % (Auto) [place] % (Auto) Eos % (Auto) Baso % (Auto) Neut # (Auto) Lymph # (Auto) [place] # (Auto) Eos # (Auto) Baso # (Auto) WBC Differential Differential Comment PT INR APTT Thrombin Time Fibrinogen D-Dimer Quant (PE/DVT) Lupus Anticoagulant Pending LA PTT Screen Pending dRVVT Screen Pending Protein C Antigen Pending APC Resistance Pending Protein S Activity Pending Antithrombin III Activ Pending Factor V Leiden Mutat Pending Factor V Leiden Interp Pending Factor VIII Activity von Willebrand Factor von Willebrand Antigen vWF Multimeric Antigen vWF Ristocetin Cofactr von Willebrand Interp Von Willebrand Act PTT Factor IX Activity Sodium Potassium Chloride Carbon Dioxide Anion Gap BUN Creatinine Estimated GFR POC Glucose 171 H 98 Random Glucose Hemoglobin A1c Calcium Magnesium Total Bilirubin AST ALT Alkaline Phosphatase Total Protein Albumin Homocysteine Cardiovas Cancelled TSH Free T4 Beta-2-GPI IgG Ab Pending Beta-2-GPI IgA Ab Pending Beta-2-GPI IgM Ab Pending Phosphatidylserine IgG Pending Phosphatidylserine IgA Pending Phosphatidylserine IgM Pending Anti-Cardiolipin IgG Ab Pending Anti-Cardiolipin IgM Ab Pending MTHFR Mutation Detect Pending Prothrombin [id number] Mut Pending 05/20/18 05/20/18 05/20/18 14:25 14:25 12:01 WBC RBC Hgb Hct MCV MCH MCHC RDW Plt Count MPV Neut % (Auto) Lymph % (Auto) [place] % (Auto) Eos % (Auto) Baso % (Auto) Neut # (Auto) Lymph # (Auto) [place] # (Auto) Eos # (Auto) Baso # (Auto) WBC Differential Differential Comment PT 10.2 INR 1.0 APTT 33.2 H Thrombin Time Pending Fibrinogen 499 H D-Dimer Quant (PE/DVT) 1.41 H Lupus Anticoagulant LA PTT Screen dRVVT Screen Protein C Antigen APC Resistance Protein S Activity Antithrombin III Activ Factor V Leiden Mutat Factor V Leiden Interp Factor VIII Activity Pending von Willebrand Factor Pending von Willebrand Antigen Pending vWF Multimeric Antigen Pending vWF Ristocetin Cofactr Pending von Willebrand Interp Pending Von Willebrand Act PTT Pending Factor IX Activity Pending Sodium Potassium Chloride Carbon Dioxide Anion Gap BUN Creatinine Estimated GFR POC Glucose 192 H Random Glucose Hemoglobin A1c Calcium Magnesium Total Bilirubin AST ALT Alkaline Phosphatase Total Protein Albumin Homocysteine Cardiovas TSH Free T4 Beta-2-GPI IgG Ab Beta-2-GPI IgA Ab Beta-2-GPI IgM Ab Phosphatidylserine IgG Phosphatidylserine IgA Phosphatidylserine IgM Anti-Cardiolipin IgG Ab Anti-Cardiolipin IgM Ab MTHFR Mutation Detect Prothrombin [id number] Mut - Impressions ITS Impressions Chest X-Ray 05/19/18 00:00 CONCLUSION: 1. Hypoinflation with no acute cardiopulmonary process. 2. Heart size is borderline prominent but well compensated. Venous Doppler Study 05/20/18 00:00 CONCLUSION: 1. No evidence of deep venous thrombosis. Discharge Plan - Discharge Disposition Patient Disposition: 01 Discharge Home - Discharge Condition Condition: Good - Discharge Order Discharge Orders: Discharge Order (Routine); Ordered 05/21/18 Ordered By: Hermilo Gautam - Discharge Details Anticipated Discharge Date: 05/21/18 Discharge Comment: DC TO HOME TODAY - Physicians Team Primary Care Provider: Anita Nichols Attending Provider: Hermilo Gautam Other Providers: Mckinley Marshall MD
[2018-05-21 12:56] VITALS: BP 100/51; PULSE 62; O2SAT 96
[2018-05-21 13:26] LABS: Hemoglobin A1c 7.8 % (4.3-6.0)
[2018-05-24 11:52] LABS: Dil Russell Viper Venom Conf ( ND (NEGATIVE); Dil Russell Viper Venom Time M ND (CORRECTED); Lupus Anticoagulant PTT Screen 39 seconds (< OR = 40)
[2018-05-24 13:53] LABS: Thrombin Time 22 sec (13-19)
[2018-05-25 03:51] LABS: Activated Protein C Resistance 1.4 ratio (> OR = 2.1)
[2018-05-25 15:01] LABS: Factor V Leiden Mutation Heterozygous (Negative); Protein C Antigen 108 % (70-150)
== END 2018-05-21 15:20 | disposition home or self-care (01) ==
LOC: NEPC 17:18 → NEDA 19:02 → N07 21:56
PROVIDERS: ADMIT Hospitalist; ATTEND Hospitalist